=== PATIENT | male | born 1985 | race Caucasian/White ===

== ENCOUNTER 2017-06-25 08:29 | Emergency (ER) | payer OTHER ==
[~2017-06-25] VITALS: Ht 185.4 cm; Wt 128.0 kg
[2017-06-25 08:36] VITALS: TEMP 36.8
[2017-06-25] MEDS ORDERED: RIZA10TA18 PO (08:52)
[2017-06-25 09:03] VITALS: Ht 185.4 cm; Wt 128.0 kg
--- NOTE | 2017-06-25 09:09 | EMERGENCY ROOM VISIT NOTE ---
History Report prepared by Yaneth: Sean Morgan Under the Supervision of: Dr. Nicholas Kemp M.D. First contact with patient: 08:33 Chief Complaint: DIARRHEA Stated Complaint: SYNCOPE Nursing Triage Summary: pt to the ED via EMS from home where he had diarrhea today and then had a witnessed syncopal episode with mom and brother where he fell and hit the back of his head and has a abrasion there. then pt had another epiosde of diarrhea. pt c/o pain in head from hitting it when he fell pt is awake and alert and follows directions History of Present Illness The patient is a 32 year old white male with a past medical history of migraine headaches who presents to the ED with a cc of multiple episodes of diarrhea beginning this morning. Positive loss of consciousness, posterior head pain. Negative tongue trauma, chest pain, shortness of breath, nausea, vomiting, abdominal pain, back pain, extremity pain, pelvic pain, swelling in his legs, or incontinence. The patient woke up this morning and had multiple episodes of diarrhea. After he was done and was still on the toilet, he began to feel warm and tingly. The next thing he remembers was waking up on the floor with posterior head pain. He is not feeling the warm and tingly sensation at this time. He denies any history of seizures or blood clots in his legs. He takes Maxalt for his migraines without any other medications including blood thinners. He denies any known sick contacts, recent travels, recent antibiotic use, or any strange foods. He denies any using any stream or well water as well. He notes he went hunting a couple of weeks ago. Source of History: patient Onset: earlier this morning Position: other (GI) Symptom Intensity: multiple episodes Quality: other (Diarrhea) Timing: intermittent Associated Symptoms: + LOC, No neck pain, No chest pain, No SOB, No nausea, No vomiting, No abdominal pain, No back pain Note: He has posterior head pain. He denies any tongue trauma or swelling in his legs. Review of Systems See HPI for pertinent positives and negatives. A total of ten systems were reviewed and were otherwise negative. Past Medical & Surgical Medical Problems: (1) Migraine Family History Patient reports no known family medical history. Social History Smoking Status: Current Every Day Smoker Smokeless Tobacco Use: No Alcohol Use: none Drug Use: none Current/Historical Medications Scheduled PRN Rizatriptan Benzoate (Maxalt), 10 MG PO UD PRN for Migraine Allergies Coded Allergies: No Known Allergies (Unverified , 06/25/17) Physical Exam Vital Signs Date Time Temp Pulse Resp B/P (MAP) Pulse Ox O2 Delivery O2 Flow Rate FiO2 06/25/17 10:41 77 20 144/91 100 06/25/17 08:40 89 129/84 89 131/96 97 146/101 06/25/17 08:37 85 06/25/17 08:36 36.8 90 18 151/92 99 Room Air Physical Exam GENERAL: Awake, alert, well-appearing, NAD, smells of smoke HENT: Normocephalic, atraumatic. EYES: Normal conjunctiva. Sclera non-icteric. NECK: Supple. No nuchal rigidity. FROM. RESPIRATORY: CTAB, no rhonchi, wheezing, crackles CARDIAC: RRR, no MRG ABDOMEN: Soft, NTND, BS+ MSK: No chest wall TTP, no LE edema NEURO: CN 2-12 intact, 5/5 upper and lower extremity strength, no dysmetria, no drift, good finger to nose, no sensory deficits. SKIN: No rash or jaundice noted. Medical Decision & Procedures ER Provider Diagnostic Interpretation: Radiology results as stated below per my review and radiologist interpretation: CHEST ONE VIEW PORTABLE HISTORY: EVALUATE WEAKNESS COMPARISON: None. FINDINGS: No pneumothorax. No pleural effusions. The lungs are clear. There are low lung volumes. Heart is normal in size. No rib fractures. IMPRESSION: No acute process. Electronically signed by: Roman Barakat M.D. 06/25/2017 9:31 AM Dictated Date/Time: 06/25/2017 9:30 AM Laboratory Results 06/25/17 08:05 Red Blood Count 5.01, Mean Corpuscular Volume 88.4, Mean Corpuscular Hemoglobin 31.1, Mean Corpuscular Hemoglobin Concent 35.2, Mean Platelet Volume 11.6 06/25/17 08:05 Test 06/25/17 08:05 06/25/17 09:27 White Blood Count 14.12 K/uL (4.8-10.8) Red Blood Count 5.01 M/uL (4.7-6.1) Hemoglobin 15.6 g/dL (14.0-18.0) Hematocrit 44.3 % (42-52) Mean Corpuscular Volume 88.4 fL (80-100) Mean Corpuscular Hemoglobin 31.1 pg (25-34) Mean Corpuscular Hemoglobin Concent 35.2 g/dl (32-36) Platelet Count 316 K/uL (130-400) Mean Platelet Volume 11.6 fL (7.4-10.4) RDW Standard Deviation 44.1 fL (36.4-46.3) RDW Coefficient of Variation 13.6 % (11.5-14.5) Neutrophils % (Manual) 38.0 % Lymphocytes % (Manual) 31.0 % Variant Lymphocytes % (manual) 19.8 % Monocytes % (Manual) 8.6 % Eosinophils % (Manual) 2.6 % Neutrophils # (Manual) 5.37 K/uL (1.4-6.5) Total Absolute Neutrophils 5.37 K/uL (1.4-6.5) Lymphocytes # (Manual) 4.38 K/uL (1.2-3.4) Absolute Variant Lymphocytes 2.80 K/uL Total Absolute Lymphocytes 7.17 K/uL (1.2-3.4) Monocytes # (Manual) 1.21 K/uL (0.11-0.59) Eosinophils # (Manual) 0.37 K/uL (0-0.5) Anion Gap 9.0 mmol/L (3-11) Est Creatinine Clear Calc Drug Dose 139.0 ml/min Estimated GFR () 105.4 Estimated GFR (Non- 91.0 BUN/Creatinine Ratio 21.0 (10-20) Calcium Level 9.1 mg/dl (8.5-10.1) Magnesium Level 2.1 mg/dl (1.8-2.4) Lipase 151 U/L (73-393) Thyroid Stimulating Hormone (TSH) 4.850 uIu/ml (0.300-4.500) Prothrombin Time 10.5 SECONDS (9.0-12.0) Prothromb Time International Ratio 1.0 (0.9-1.1) Activated Partial Thromboplast Time 21.6 SECONDS (21.0-31.0) Partial Thromboplastin Ratio 0.8 Laboratory results reviewed by me Medications Administered Medications (Trade) Dose Ordered Sig/Jori Route Start Time Stop Time Status Last Admin Dose Admin Potassium Chloride (Klor-Con Tab) 40 meq NOW STAT PO 06/25/17 10:00 06/25/17 10:01 DC 06/25/17 10:14 40 MEQ ECG Indication: syncope Rate (beats per minute): 82 Rhythm: normal sinus Findings: T-wave inversion (Lead III), other (Normal intervals, normal axis, no other STS changes or TWI) ED Course 0833: The patient was evaluated in room B12B. A complete history and physical exam was performed. 1041: I reevaluated the patient. Discussed results and discharge instructions: He verbalized understanding and agreement. The patient is ready for discharge. Medical Decision The patient is a 32 year old white male with a past medical history of migraine headaches who presents to the ED with a cc of multiple episodes of diarrhea beginning this morning. Positive loss of consciousness, posterior head pain. Negative tongue trauma, chest pain, shortness of breath, nausea, vomiting, abdominal pain, back pain, extremity pain, pelvic pain, swelling in his legs, or incontinence. Differential diagnosis: Etiologies such as vasovagal event, infection, hypoglycemia, electrolyte abnormalities, cardiac sources, intracerebral event, toxicologic, neurologic, as well as others were entertained. Patient was seen and evaluated the bedside. Patient states that he had some diarrhea this morning was on the commode when the next thing he realized he was on the floor. Patient denies any history of seizures and does not take any blood thinning medications. Patient did complain of some mild discomfort to the posterior aspect of the head. On exam the patient does not have a large hematoma there is no bleeding. Patient denied any incontinence or tongue biting. I imagine this is most likely related to situational syncope secondary to the bowel movements. Patient did have blood work completed along with EKG, and chest x-ray. Patient' s EKG was nonischemic and did not show any acute arrhythmia by my read. Patient 's blood work was fairly unremarkable. Patient did have mild hypokalemia and this was repleted. Patient was also noted to have an elevated TSH which he was informed and told he should follow-up with his primary care physician for further evaluation and possible treatment. Patient tolerated by mouth and was able to ambulate without issue. Patient had no neuro deficits. Do not believe the patient requires a CT of the brain this time as the patient has a nonfocal neurologic exam, has no deficits, does not take any blood thinning medications, and has a likely explanation for his syncope which would be the bowel movement. Patient was deemed suitable for outpatient follow-up and treatment. Patient was given strict follow-up, discharge, and return precautions. All questions were answered. Patient was deemed suitable for outpatient follow-up at this time. Patient agreed with the plan of care and was safely discharged home. Medication Reconcilliation Current Medication List: was personally reviewed by me Blood Pressure Screening Patient's blood pressure: Elevated blood pressure Blood pressure disposition: Elevated BP felt to be situational Impression Primary Impression: Syncope Additional Impressions: Hypokalemia Hypothyroid Scribe Attestation The scribe's documentation has been prepared under my direction and personally reviewed by me in its entirety. I confirm that the note above accurately reflects all work, treatment, procedures, and medical decision making performed by me. Departure Information Dispostion Home / Self-Care Referrals Lola Alcaraz DO (PCP) Forms HOME CARE DOCUMENTATION FORM, IMPORTANT VISIT INFORMATION, WORK / SCHOOL INSTRUCTIONS Patient Instructions ED Syncope Vasovagal, My [facility] Additional Instructions Please return to the emergency department if you have worsening or recurrent symptoms not amenable to at-home treatment. Please call for a follow-up appointment with her primary care physician. Please take your medications as prescribed. If you have other concerns and/or complaints please feel free to also call your primary care physician's office or return the ED for further evaluation, management, and treatment. You may take 600 mg Ibuprofen every 6 hours as needed for pain with food for no more than 2 consecutive days. You may take tylenol 1000 mg every 6 hours as needed for pain. You may take motrin and tylenol separately or at the same time. Take your medications as prescribed. Please consider smoking cessation. You have been examined and treated today on an emergency basis only. This is not a substitute for, or an effort to provide, complete comprehensive medical care. It is impossible to recognize and treat all injuries or illnesses in a single emergency department visit. It is therefore important that you follow up closely with [facility], your PCP, and/or your specialist(s). Call as soon as possible for an appointment. Thank you for your time and consideration. I look forward to speaking with you again soon. Please don't hesitate to call us if you have any questions. Problem Qualifiers Primary Impression: Syncope Syncope type: vasovagal syncope Qualified Codes: R55 - Syncope and collapse Additional Impressions: Hypothyroid Hypothyroidism type: unspecified Qualified Codes: E03.9 - Hypothyroidism, unspecified
[2017-06-25 09:22] LABS: HEMATOCRIT 44.3 % (42-52); HEMOGLOBIN 15.6 g/dL (14.0-18.0); MEAN CELL VOLUME 88.4 fL (80-100); MEAN CORPUSCULAR HEMOGLOBIN 31.1 pg (25-34); MEAN CORPUSCULAR HGB CONC 35.2 g/dl (32-36); MEAN PLATELET VOLUME 11.6 fL (7.4-10.4); PLATELET COUNT 316 K/uL (130-400); RED CELL DISTRIBUTION WIDTH CV 13.6 % (11.5-14.5); RED CELL DISTRIBUTION WIDTH SD 44.1 fL (36.4-46.3); WHITE BLOOD COUNT 14.12 K/uL (4.8-10.8)
--- NOTE | 2017-06-25 09:32 | DIAGNOSTIC IMAGING REPORT ---
CHEST ONE VIEW PORTABLE HISTORY: EVALUATE WEAKNESS COMPARISON: None. FINDINGS: No pneumothorax. No pleural effusions. The lungs are clear. There are low lung volumes. Heart is normal in size. No rib fractures. IMPRESSION: No acute process. Electronically signed by: Roman Barakat M.D. 06/25/2017 9:31 AM Dictated Date/Time: 06/25/2017 9:30 AM
[2017-06-25 09:46] LABS: CALCIUM 9.1 mg/dl (8.5-10.1); CREATININE 1.08 mg/dl (0.60-1.40); POTASSIUM 3.3 mmol/L (3.5-5.1)
[2017-06-25 09:48] LABS: PTT PATIENT 21.6 SECONDS (21.0-31.0)
[2017-06-25] MEDS ORDERED: POTASSIUM CHLORIDE 20 MEQ TABCR PO STA (10:00)
[2017-06-25 10:41] VITALS: BP 144/91; PULSE 77; O2SAT 100
== END 2017-06-25 10:42 | disposition home or self-care (01) ==
LOC: EDBD 08:29 → C.EDB 08:31
DX: R55 Syncope and collapse (principal); E87.6 Hypokalemia; E03.9 Hypothyroidism, unspecified; F17.200 Nicotine dependence, unspecified, uncomplicated

== ENCOUNTER → 2017-07-02 | Outpatient (CLI) | payer OTHER ==
[~2017-07-02] MED LIST: RIZA10TA18 PO
[2017-07-02 12:39] LABS: BLOOD UREA NITROGEN 13 mg/dl (7-18); CALCIUM 9.2 mg/dl (8.5-10.1); CARBON DIOXIDE 26 mmol/L (21-32); CHOLESTEROL 188 mg/dl (0-200); CREATININE 0.95 mg/dl (0.60-1.40); GLUCOSE 105 mg/dl (70-99); SODIUM 139 mmol/L (136-145)
[2017-07-02 12:49] LABS: LDL CHOLESTEROL CALCULATED 119 mg/dl
[2017-07-03 11:30] LABS: MICROSOMAL AB <1 IU/ML (<9)
== END | disposition home or self-care (01) ==
LOC: C.LABPBG 10:04
PROVIDERS: ATTEND Family Medicine
DX: Z00.00 Encounter for general adult medical examination without abnormal findings (principal); R94.6 Abnormal results of thyroid function studies; E87.6 Hypokalemia; T14.8XXA Other injury of unspecified body region, initial encounter; W57.XXXA Bitten or stung by nonvenomous insect and other nonvenomous arthropods, initial encounter